=== PATIENT | female | born 1965 | race Caucasian/White ===

== ENCOUNTER → 2024-03-19 15:33 | Outpatient (CLI) | payer OTHER, SELFPAY ==
[2024-03-19 16:44] LABS: HEMOLYSIS < 15 (0-50); Iron 157 ug/dL (37-170)
[2024-03-19 16:50] LABS: Cholesterol 226 mg/dL (140-199); HDL Cholesterol 92 mg/dL (40-60); LDL Cholesterol Calculated 115 mg/dL (<100); Magnesium 2.1 mg/dL (1.6-2.3); Triglycerides 96 mg/dL (35-150)
[2024-03-19 16:54] LABS: Percent Iron Saturation 55 % (15-50); Total Iron Binding Capacity 285 ug/dL (265-497)
[2024-03-19 17:04] LABS: Transferrin 234 mg/dL (206-381)
== END ==
PROVIDERS: PCP Family Medicine; Referring Provider Family Medicine; Visit Provider Family Medicine
DX: G25.81 Restless legs syndrome (principal); E78.00 Pure hypercholesterolemia, unspecified
CPT/HCPCS: 36415; 80061; 83540; 83550; 83735

== ENCOUNTER → 2024-04-06 12:09 | Outpatient (CLI) | payer OTHER, SELFPAY ==
--- NOTE | 2024-04-06 12:11 | DI.RAD.S_ITS ---
PROCEDURE: XR HIP W PEL IF DONE RT 2V INDICATIONS: hip pain TECHNIQUE: AP pelvis with lateral view(s) of the right hip(s). COMPARISON: None. FINDINGS: Bones: No fractures or dislocations. Pelvic ring appears intact. No suspicious bony lesions. Moderate right hip degenerative arthritis. Mild left hip degenerative arthritis. Soft tissues: The visualized bowel gas pattern is normal. No suspicious soft tissue calcifications. IMPRESSION: Bilateral degenerative arthritis, right greater than left. Dictated by: Gian Castillo M.D. on 04/06/2024 at 18:49 Approved by: Gian Castillo M.D. on 04/06/2024 at 18:50
--- NOTE | 2024-04-06 12:11 | DI.CT.S_ITS ---
PROCEDURE: CT LUNG LOW DOSE SCREENING INDICATIONS: Hx of tobacco use 20+ years, quit within last 2 years TECHNIQUE: Noncontrast 2.0-2.5 mm thick sections acquired from the pulmonary apices to the posterior costophrenic angles. 7 mm thick axial MIP, and 5 mm coronal and sagittal reformats were then acquired. For radiation dose reduction, the following was used: automated exposure control, adjustment of mA and/or kV according to patient size. COMPARISON: None. FINDINGS: Image quality: Diagnostic. Lower Neck: No enlarged lymph nodes. Thyroid: No thyroid nodules which require sonographic follow up, per consensus guidelines. Axillae: No enlarged lymph nodes. Chest Wall: Unremarkable. Bones: No aggressive appearing bony lesions. Lungs and Pleura: No pneumothorax or pleural effusions. Scattered scarring/atelectasis in posterior and lateral periphery of bilateral lung bases are seen. Linear scarring/atelectasis in medial aspect of left lingular segment is also seen. No consolidation or suspicious nodules. Heart: Heart size is normal. No pericardial effusion. Thoracic Vessels: The aorta and pulmonary arteries demonstrate normal size. Mediastinum and Yessy: No enlarged lymph nodes. Esophagus: No wall thickening. No hiatal hernia. Upper Abdomen: Visualized upper abdomen solid organs and bowel loops appear normal. IMPRESSION: 1. No suspicious pulmonary nodules. LUNG-RADS 1; continued annual screening, if eligible. Clinically Significant Non-pulmonary Findings: None. Dictated by: Braulio Berry M.D. on 04/06/2024 at 15:42 Approved by: Braulio Berry M.D. on 04/06/2024 at 15:47
== END ==
PROVIDERS: PCP Family Medicine; Referring Provider Family Medicine; Visit Provider Family Medicine
DX: Z12.2 Encounter for screening for malignant neoplasm of respiratory organs (principal); Z87.891 Personal history of nicotine dependence; M16.0 Bilateral primary osteoarthritis of hip; M25.551 Pain in right hip
CPT/HCPCS: 71271; 73502

== ENCOUNTER → 2024-09-07 14:30 | Outpatient (CLI) | payer OTHER, SELFPAY ==
--- NOTE | 2024-09-07 14:32 | DI.MG.S_ITS ---
BILATERAL DIGITAL SCREENING MAMMOGRAM 3D/2D WITH CAD: 09/07/2024 CLINICAL: Routine screening. No prior exams were available for comparison. The breasts are heterogeneously dense, which may obscure small masses (category c / 51-75% glandular tissue). Current study was also evaluated with a Computer Aided Detection (CAD) system. There is an oval equal density focal asymmetry in the left breast at 8 o'clock posterior depth. No other significant masses, calcifications, or other findings are seen in either breast. IMPRESSION: INCOMPLETE: NEED ADDITIONAL IMAGING EVALUATION The oval equal density focal asymmetry in the left breast is indeterminate. Additional views with possible ultrasound are recommended. Based on the Tyrer Cuzick model (a risk assessment model) the patient's lifetime risk is 14.3% and her 10 year risk is 6.1%. According to the ACR, ACS, and NCCN guidelines, an annual breast MRI exam along with mammogram is recommended if the patient's lifetime risk is 20% or greater. This exam was interpreted at Station ID: [id number]. NOTE: For mammograms, a report in lay terms will be sent to the patient. Approximately 15% of breast malignancies will not be visualized mammographically. In the management of a palpable breast mass, a negative mammogram must not discourage biopsy of a clinically suspicious lesion. Electronically Signed By: Denny Bryan M.D. aty/:09/14/2024 17:19:23 letter sent: Additional Imaging Needed ACR BI-RADS Category 0: Incomplete: Need Additional Imaging Evaluation
== END ==
PROVIDERS: PCP Family Medicine; Referring Provider Family Medicine; Visit Provider Family Medicine
DX: Z12.31 Encounter for screening mammogram for malignant neoplasm of breast (principal); R92.333 Mammographic heterogeneous density, bilateral breasts
CPT/HCPCS: 77063; 77067

== ENCOUNTER → 2024-09-25 11:57 | Outpatient (CLI) | payer OTHER, SELFPAY ==
--- NOTE | 2024-09-25 11:58 | DI.US.S_ITS ---
LIMITED ULTRASOUND OF LEFT BREAST AND AXILLA: 09/25/2024 CLINICAL: Patient returns today to evaluate an asymmetry in the left breast. Comparison is made to exams dated: 09/25/2024 mammogram and 09/07/2024 mammogram - [facility]. Color flow and real-time ultrasound of the left breast 6-9 o'clock, and axilla regions were performed. Sherman scale images of the real-time examination were reviewed. There is a 1.3 cm x 0.4 cm x 1.2 cm oval mass in the left breast at 6:30 o'clock posterior depth 3 cm from the nipple. This oval mass is hypoechoic and heterogeneously echogenic. This correlates with mammography findings. Color flow imaging demonstrates that there is no vascularity present. No significant abnormalities were seen sonographically in the left axilla. IMPRESSION: SUSPICIOUS The 1.3 cm x 0.4 cm x 1.2 cm oval mass in the left breast at the 6:30 o'clock position resembles a complex cyst, a solid mass, fibroadenolipoma, or a fibroadenoma and is at a low suspicion for malignancy. An ultrasound guided biopsy is recommended. No sonographic abnormalities identified in the axilla. No axillary adenopathy. Findings and recommendations were discussed with the patient by Dr. Marie during today's examination. This exam was interpreted at Station ID: [id number]. Electronically Signed By: Denny Bryan M.D. aty/:09/25/2024 13:25:41 letter sent: Biopsy Required ACR BI-RADS Category 4A: Suspicious
--- NOTE | 2024-09-25 11:58 | DI.MG.S_ITS ---
UNILATERAL LEFT DIGITAL DIAGNOSTIC MAMMOGRAM 3D/2D WITH ADDITIONAL VIEWS: 09/25/2024 CLINICAL: Additional evaluation requested from prior study. Comparison is made to exam dated: 09/07/2024 mammogram - [facility]. The breasts are heterogeneously dense, which may obscure small masses (category c / 51-75% glandular tissue). There is a 1.7 cm oval equal density focal asymmetry in the left breast at 8 o'clock posterior depth. This is seen in additional views. No other significant masses or calcifications are seen in the breast. IMPRESSION: INCOMPLETE: NEED ADDITIONAL IMAGING EVALUATION The 1.7 cm oval equal density focal asymmetry in the left breast is indeterminate. An ultrasound is recommended for further evaluation and is scheduled to immediately follow this examination. Based on the Tyrer Cuzick model (a risk assessment model) the patient's lifetime risk is 14.3% and her 10 year risk is 6.1%. According to the ACR, ACS, and NCCN guidelines, an annual breast MRI exam along with mammogram is recommended if the patient's lifetime risk is 20% or greater. This exam was interpreted at Station ID: [id number]. NOTE: For mammograms, a report in lay terms will be sent to the patient. Approximately 15% of breast malignancies will not be visualized mammographically. In the management of a palpable breast mass, a negative mammogram must not discourage biopsy of a clinically suspicious lesion. Electronically Signed By: Denny Bryan M.D. aty/:09/25/2024 12:37:44 letter sent: Additional Imaging Needed ACR BI-RADS Category 0: Incomplete: Need Additional Imaging Evaluation
== END ==
PROVIDERS: PCP Family Medicine; Referring Provider Family Medicine; Visit Provider Family Medicine
DX: R92.8 Other abnormal and inconclusive findings on diagnostic imaging of breast (principal); N63.24 Unspecified lump in the left breast, lower inner quadrant; R92.333 Mammographic heterogeneous density, bilateral breasts
CPT/HCPCS: 76642; 77065; G0279

== ENCOUNTER → 2024-10-26 12:53 | Outpatient (CLI) | payer OTHER, SELFPAY ==
--- NOTE | 2024-10-26 | DI.MG.S_ITS ---
PROCEDURE: MM DIAGNOSTIC MAMMO UNILAT LT2D COMPARISON: None. INDICATIONS: POST CLIP FINDINGS: Somewhat underpenetrated and mammographic images show the clip to be in the nodule margin superior medial in position relative to the breast nodule on mammography. IMPRESSION: Successful clip deployment. Dictated by: Catracho Lopez M.D. on 10/26/2024 at 15:51 Approved by: Catracho Lopez M.D. on 10/26/2024 at 16:00
--- NOTE | 2024-10-26 12:55 | DI.US.S_ITS ---
PROCEDURE: US BX BREAST PERC W BD 19 Guage DEVICE COMPARISON: [facility], MG, MM DIAGNOSTIC MAMMO UNILAT LT2D, 10/26/2024, 14:36. INDICATIONS: 1.3 cm x 0.4 cm x 1.2 cm oval mass; 6:30 o'clock position FINDINGS: Ultrasound imaging of the left breastt nodule 6:30 in location 3 cm from nipple was located in the known 4 biopsies were obtained. A clip was placed and follow-up cc and MLO mammograms were obtained. The clip was seen centrally in the lesion on ultrasound pre and on the mammogram appears to be superior medial in location in the edge of the lesion. IMPRESSION: Successful left gross biopsying a and clip placement. Dictated by: Catracho Lopez M.D. on 10/26/2024 at 15:27 Approved by: Catracho Lopez M.D. on 10/26/2024 at 15:49
--- NOTE | 2024-10-26 14:31 | PATH_ITS ---
[facility] Accession Number: [id number] No. of containers..01 Tissue . 01 Material submitted: . breast - LT BREAST . 01 Diagnosis: LEFT BREAST, NEEDLE CORE BIOPSY: Fibroepithelial lesion, consistent with fibroadenoma. No significant epithelial atypia or malignancy identified. MRV 10/28/2024 1647 Local . 01 Comment: this case was also reviewed by Dr. Minnie Mcdonnell, who agrees with the interpretation. . 01 Electronically signed: . Nolvia Mccormick MD, Pathologist NPI- [id number] . 01 Gross description: . Received in formalin with two patient identifiers and left breast at 6:30 3 cm from the nipple, and consists of four cylindrical cores of ram-yellow to white fibrofatty soft tissue cores ranging from 0.6 cm up to 1.2 cm in length by 0.1 cm in diameter. The specimens are entirely submitted into cassette A1. . The specimen was removed on 10/26/2024 at 1432 hours with a total fixation time of 23 hours. ([id number]) /MRV 10/27/2024 1906 Local . 01 Pathologist provided ICD-10: D24.2 . 01 CPT . 319946 Specimen Comment: A courtesy copy of this report has been sent to [facility] Performed at: [address] [address], [place], [place] [id number] MD Jean Marie Wynn MD Phone: [phone]
== END ==
PROVIDERS: PCP Family Medicine; Referring Provider Family Medicine; Visit Provider Family Medicine
DX: N63.25 Unspecified lump in the left breast, overlapping quadrants (principal); N64.89 Other specified disorders of breast
CPT/HCPCS: 19083; 77065

== ENCOUNTER → 2025-05-04 11:24 | Outpatient (CLI) | payer OTHER, SELFPAY ==
[2025-05-04 12:15] LABS: Add Manual Diff / Slide Review NO; Hematocrit 35.9 % (36-46); Hemoglobin 12.4 g/dL (12.0-16.0); Lymphocytes Absolute Auto 1300 /uL (1100-4500); Mean Corpuscular HGB Conc 34.5 % (30-36); Mean Corpuscular Hemoglobin 33.5 PG (26-34); Mean Corpuscular Volume 97.1 fL (80-100); Platelet Count 236 X10^3/uL (150-400)
[2025-05-04 12:42] LABS: Alanine Aminotransferase 22 IU/L (<35); Albumin 4.6 g/dL (3.5-5.0); Albumin Globulin Ratio 1.5 (1.0-2.8); Alkaline Phosphatase 69 U/L (38-126); Blood Urea Nitrogen 12 mg/dL (7-17); Calcium 9.9 mg/dL (8.4-10.2); Carbon Dioxide 26 mmol/L (22-32); Chloride 103 mmol/L (98-107); Cholesterol 212 mg/dL (140-199); Estimated Glomerular Filt Rate > 60 mL/min (>60); Globulin 3.0 g/dL (1.7-4.1); Glucose 92 mg/dL (70-99); HDL Cholesterol 103 mg/dL (40-60); HEMOLYSIS < 15 (0-50); Potassium 4.4 mmol/L (3.4-5.1); Sodium 137 mmol/L (137-145); Total Protein 7.6 g/dL (6.3-8.2); Triglycerides 67 mg/dL (35-150)
== END ==
PROVIDERS: PCP Family Medicine; Referring Provider Family Medicine; Visit Provider Family Medicine
DX: Z00.00 Encounter for general adult medical examination without abnormal findings (principal); E78.00 Pure hypercholesterolemia, unspecified; E78.5 Hyperlipidemia, unspecified
CPT/HCPCS: 36415; 80053; 80061; 85025

== ENCOUNTER → 2025-07-16 14:09 | Outpatient (CLI) | payer OTHER, SELFPAY ==
--- NOTE | 2025-07-16 14:10 | DI.CT.S_ITS ---
PROCEDURE: CT LUNG LOW DOSE SCREENING INDICATIONS: annual screening TECHNIQUE: Noncontrast 2.0-2.5 mm thick sections acquired from the pulmonary apices to the posterior costophrenic angles. 7 mm thick axial MIP, and 5 mm coronal and sagittal reformats were then acquired. For radiation dose reduction, the following was used: automated exposure control, adjustment of mA and/or kV according to patient size. COMPARISON: [facility], CT, CT LUNG LOW DOSE SCREENING, 04/06/2024, 12:28. FINDINGS: Image quality: Diagnostic. Lower Neck: No enlarged lymph nodes. Thyroid: No thyroid nodules which require sonographic follow up, per consensus guidelines. Axillae: No enlarged lymph nodes. Chest Wall: Unremarkable. Bones: Unremarkable. Lungs and Pleura: No pneumothorax or pleural effusions. No consolidation or suspicious nodules. Heart: Heart size is normal. No pericardial effusion. Thoracic Vessels: The aorta and pulmonary arteries demonstrate normal size. Mediastinum and Yessy: No enlarged lymph nodes. Esophagus: No wall thickening. No hiatal hernia. Upper Abdomen: Visualized upper abdomen solid organs and bowel loops appear normal. IMPRESSION: No suspicious pulmonary nodules. LUNG-RADS 1; continued annual screening, if eligible. Clinically Significant Non-pulmonary Findings: None. Dictated by: Cecilio Lea M.D. on 07/18/2025 at 11:47 Approved by: Cecilio Lea M.D. on 07/18/2025 at 11:51
== END ==
LOC: CT 14:09
PROVIDERS: PCP Family Medicine; Referring Provider Family Medicine; Visit Provider Family Medicine
DX: R05.8 Other specified cough (principal); Z87.891 Personal history of nicotine dependence
CPT/HCPCS: 71271